=== PATIENT | female | born 1970 | race Caucasian/White ===

== ENCOUNTER 2021-12-15 14:27 | Emergency (ER) | payer OTHER | END 2021-12-15 16:13 | disposition home or self-care (01) | LOC: JP.ED 14:27 | DX: R04.0 Epistaxis (principal); Z87.891 Personal history of nicotine dependence | CPT/HCPCS: 36415; 85025; 99283 ==

== ENCOUNTER 2022-10-30 19:03 | Emergency (ER) | payer OTHER ==
[2022-10-30] MEDS ORDERED: HYDROmorphone 1 MG/ML Syringe IVPUSH ONE (19:21)
[2022-10-30] MEDS ORDERED: Sodium Chloride 0.9% 10 ML Syringe FLUSH PRN ×2 (19:22→20:36)
[2022-10-30] MEDS ORDERED: Lidocaine 1% 5 ML VIAL INJECT ONE (19:27)
[2022-10-30] MEDS ORDERED: Bacitracin Oint 1 GM U/D Packet TOP ONE (20:36)
[2022-10-30] MEDS ORDERED: Sodium Chloride 0.9% 1,000 ML IV SCH (20:45)
[2022-10-30] MEDS ORDERED: Propofol 200 MG/20 ML SDV ONE (21:13)
[2022-10-30] MEDS ORDERED: HYDROmorphone 0.5 MG/0.5 ML Syringe IVPUSH ONE (21:48)
== END 2022-10-30 22:42 | disposition home or self-care (01) ==
LOC: JP.ED 19:03
DX: S52.532A Colles' fracture of left radius, initial encounter for closed fracture (principal); S41.112A Laceration without foreign body of left upper arm, initial encounter; W19.XXXA Unspecified fall, initial encounter
CPT/HCPCS: 12002; 25605; 73080; 73110; 76000; 96374; 96376; 99283; J1170; J2704; J3490; J7030

== ENCOUNTER 2022-11-01 05:28 | Day surgery (SDC) | payer OTHER ==
[2022-11-01] MEDS ORDERED: Nozin Nasal Sanitizer NASBOTH ONE (06:00)
[2022-11-01 06:05] LABS: HEMATOCRIT 37.2 % (34.3-46.0); HEMOGLOBIN 12.5 g/dL (11.2-15.5); MEAN CORPUSCULAR HEMOGLOBIN 30.1 pg (31.6-35.5); MEAN CORPUSCULAR HGB CONC 33.6 g/dL (31.6-35.5); MEAN CORPUSCULAR VOLUME 89.6 fL (81.4-99.0); RED BLOOD CELL COUNT 4.15 M/uL (3.77-5.24); WHITE BLOOD CELL COUNT,WBC 9.2 K/uL (3.2-11.0)
[2022-11-01 06:22] LABS: CALCIUM 8.4 mg/dL (8.5-10.1); CREATININE 0.8 mg/dL (0.6-1.0); EST CRCL DRUG DOSING (CG) 71.03 mL/min; POTASSIUM,K 3.7 mmol/L (3.6-5.2)
[2022-11-01 06:27] LABS: ANION GAP 10.7 mmol/L (5.0-14.0)
[2022-11-01] MEDS ORDERED: Lactated Ringers 1,000 ML IV SCH (06:30)
[2022-11-01] MEDS ORDERED: fentaNYL 250 MCG/5 ML SDV ONE (06:39)
[2022-11-01] MEDS ORDERED: ceFAZolin 2 GM in Premix Bag 1 BAG IV ONE (07:00)
[2022-11-01] MEDS ORDERED: Bupivacaine 0.5% 30 ML SDV INJECT ONE ×2 (08:48)
[2022-11-01] MEDS ORDERED: Midazolam 1 MG/ML 2 ML SDV ONE (09:00)
[2022-11-01] MEDS ORDERED: Dexamethasone 4 MG/ML SDV ONE (09:00)
[2022-11-01] MEDS ORDERED: Ondansetron 4 MG/2 ML SDV ONE (09:00)
[2022-11-01] MEDS ORDERED: Glycopyrrolate 0.2 MG/ML 5 ML MDV ONE (09:00)
[2022-11-01] MEDS ORDERED: Rocuronium 50 MG/5 ML Vial ONE (09:00)
[2022-11-01] MEDS ORDERED: Neostigmine Methylsulfate 1 MG/ML 5 ML Syringe ONE ×2 (09:00)
[2022-11-01] MEDS ORDERED: Propofol 200 MG/20 ML SDV ONE (09:00)
[2022-11-01] MEDS ORDERED: Ketorolac 30 MG/ML SDV ONE (09:03)
[2022-11-01] MEDS ORDERED: Acetaminophen/HYDROcodone 325-5 MG Tab PO ONE (11:00)
== END 2022-11-01 11:30 | disposition home or self-care (01) ==
LOC: JP.SDS 05:28
PROVIDERS: ATTEND Specialist
DX: S52.572A Other intraarticular fracture of lower end of left radius, initial encounter for closed fracture (principal); S52.612A Displaced fracture of left ulna styloid process, initial encounter for closed fracture; F32.A Depression, unspecified; G43.909 Migraine, unspecified, not intractable, without status migrainosus; Z85.841 Personal history of malignant neoplasm of brain; Z98.890 Other specified postprocedural states; Z87.891 Personal history of nicotine dependence; Z79.899 Other long term (current) drug therapy; W19.XXXA Unspecified fall, initial encounter
CPT/HCPCS: 25608; 36415; 76000; 80048; 85027; A9270; C1713; J0690; J1100; J1885; J2250; J2405; J2704; J2710; J3010; J3490; J7120

== ENCOUNTER 2025-02-26 12:57 | Emergency (ER) | payer OTHER, BC | END 2025-02-26 16:24 | disposition home or self-care (01) | LOC: JP.ED 12:57 | DX: S82.831A Other fracture of upper and lower end of right fibula, initial encounter for closed fracture (principal); S82.64XA Nondisplaced fracture of lateral malleolus of right fibula, initial encounter for closed fracture; S92.354A Nondisplaced fracture of fifth metatarsal bone, right foot, initial encounter for closed fracture; W18.40XA Slipping, tripping and stumbling without falling, unspecified, initial encounter | CPT/HCPCS: 73610-26-RT; 73610-RT; 73630-26-RT; 73630-RT; 99283 ==